=== PATIENT | female | born 1980 | race Caucasian/White ===

== ENCOUNTER 2024-12-21 13:16 | Emergency (ER) | payer SELFPAY ==
[~2024-12-21] VITALS: Ht 165.1 cm; Wt 73.0 kg
[2024-12-21] MEDS: TETANUS, DIPHTHERIA, PERTUSSIS VAC/PF 0.5ML (>10YR OLD) IM ONE (17:02)
[2024-12-21] MEDS: LIDOCAINE HCL 1% 20ML VIAL INFIL ONE (17:05)
[2024-12-21] MEDS ORDERED: BO1 TP (17:12)
[2024-12-21] MEDS: BACITRACIN ZINC OINT UDPKT TOP ONE (18:50)
[2024-12-21] MEDS: ACETAMINOPHEN 500MG TABLET PO ONE (18:50)
[2024-12-21 18:55] VITALS: BP 126/83; PULSE 90; RESP 18; TEMP 36.8; O2SAT 99
== END 2024-12-21 18:57 | disposition home or self-care (01) ==
LOC: ER 15:20
DX: S02.32XA Fracture of orbital floor, left side, initial encounter for closed fracture (principal); S01.112A Laceration without foreign body of left eyelid and periocular area, initial encounter; Z98.890 Other specified postprocedural states; W22.09XA Striking against other stationary object, initial encounter; Y93.89 Activity, other specified; Y92.89 Other specified places as the place of occurrence of the external cause; Y99.8 Other external cause status
CPT/HCPCS: 99285; 70450; 70486; 72125; 90715; 12013; 90471; J2003

== ENCOUNTER 2024-12-28 14:24 | Emergency (ER) | payer BC, MEDICAID ==
[~2024-12-28] VITALS: Ht 167.6 cm; Wt 76.0 kg
[~2024-12-28 14:24] MED LIST: BO1 TP
[2024-12-28 14:41] VITALS: O2SAT 99
[2024-12-28 18:51] VITALS: BP 133/77; PULSE 69; RESP 14; TEMP 36.8; O2SAT 100
== END 2024-12-28 18:54 | disposition home or self-care (01) ==
LOC: ER 14:24
DX: S01.112D Laceration without foreign body of left eyelid and periocular area, subsequent encounter (principal); X58.XXXD Exposure to other specified factors, subsequent encounter
CPT/HCPCS: 99281; Z7610